=== PATIENT | male | born 1990 | race Caucasian/White ===

== ENCOUNTER 2017-01-08 18:56 | Emergency (ER) | payer MEDICAID ==
[~2017-01-08] VITALS: Ht 182.9 cm; Wt 108.9 kg
[~2017-01-08 18:56] MED LIST: ALBMDI IH; FLUT1DIS3; LEVA1.25; LITH300C2 PO; VENL75CA PO
--- NOTE | 2017-01-08 18:57 | NUR ---
Patient to ER bed 2 to gown for evaluation. Side rails up. Report given to Reji LOMAX.
[2017-01-08 19:00] VITALS: BP 159/81; PULSE 92; RESP 27; TEMP 97.9; O2SAT 99
[2017-01-08] MEDS ORDERED: ALBUTEROL SULFATE 0.083% 2.5 MG/3 ML VIAL.NEB INH ONE ×2 (19:00→19:09)
[2017-01-08] MEDS ORDERED: IPRATROPIUM BROM 0.5 MG/2.5 ML VIAL.NEB (ATROVENT) INH ONE (19:00)
[2017-01-08] MEDS ORDERED: methylPREDNISolone SOD SUCC/PF 62.5 MG/ML VIAL IVP ONE (19:00)
--- NOTE | 2017-01-08 19:01 | NUR ---
Patient alert and oriented x 4. Came in the ER with SOB, nares flaring, heavy breathing. Denies n/v/d. Afebrile. RT was called. Denies any other medical problems.
--- NOTE | 2017-01-08 19:02 | NUR ---
ER Dr. Napoles at bedside examining patient.
--- NOTE | 2017-01-08 19:05 | NUR ---
# 20 gauge angiocath placed to right hand. Use of asceptic technique. Opsite placed over site. Blood return noted. Blood for lab drawn from site. Flushed with 10 cc of normal saline. No evidence of infiltration noted. Patient tolerated well.
[2017-01-08] MEDS ORDERED: MAGNESIUM SULFATE 1 GM in NS 100 ML IV ONE (19:15)
[2017-01-08] MEDS ORDERED: MAGNESIUM SULFATE 1 GM/2 ML VIAL ONE (19:21)
[2017-01-08 20:03] VITALS: BP 145/69; PULSE 87; RESP 22; TEMP 97.6; O2SAT 98
--- NOTE | 2017-01-08 20:03 | NUR ---
Patient given written and verbal discharge instructions and verbalizes understanding. ER MD discussed with patient the results and treatment provided. Patient in stable condition. No acute distress or SOB upon discharge. ID arm band removed. IV catheter removed intact and dressing applied, no active bleeding. Rx of Azithromycin and Prednisone given. Pain Scale 0/10. Opportunity for questions provided and answered.
== END 2017-01-08 20:03 | disposition home or self-care (01) ==
LOC: SED 18:56
DX: J45.901 Unspecified asthma with (acute) exacerbation (principal); F32.9 Major depressive disorder, single episode, unspecified; R05 Cough
CPT/HCPCS: 94640; 96365; 96375; 99291; J2930; J3475

== ENCOUNTER 2017-08-15 11:06 | Emergency (ER) | payer MEDICAID ==
[~2017-08-15] VITALS: Ht 182.9 cm; Wt 104.3 kg
[~2017-08-15 11:06] MED LIST changes: -LEVA1.25; -LITH300C2 PO; -VENL75CA PO
[2017-08-15 11:11] VITALS: BP_SYST 133
[2017-08-15] MEDS ORDERED: KETOROLAC TROMETHAMINE 30 MG VIAL IM ONE (12:30)
[2017-08-15 13:42] VITALS: BP_SYST 130
== END 2017-08-15 13:40 | disposition home or self-care (01) ==
LOC: SED 11:06
DX: J45.909 Unspecified asthma, uncomplicated (principal); S63.502A Unspecified sprain of left wrist, initial encounter; M25.512 Pain in left shoulder; S83.91XA Sprain of unspecified site of right knee, initial encounter; W03.XXXA Other fall on same level due to collision with another person, initial encounter; Y93.89 Activity, other specified; Y92.89 Other specified places as the place of occurrence of the external cause; Y99.8 Other external cause status
CPT/HCPCS: 29125; 73020; 73080; 73100; 73130; 73564; 96372; 99284; J1885

== ENCOUNTER 2017-09-14 21:02 | Emergency (ER) | payer MEDICAID ==
[~2017-09-14] VITALS: Ht 182.9 cm; Wt 100.7 kg
[2017-09-14 21:04] VITALS: BP_SYST 132
[2017-09-14] MEDS ORDERED: PREDNISONE 20 MG TABLET PO ONE (22:00)
[2017-09-14] MEDS ORDERED: IPRATROPIUM BROM 0.5 MG/2.5 ML VIAL.NEB (ATROVENT) IH ONE (22:00)
[2017-09-14] MEDS ORDERED: LevALBUTEROL HCL 1.25 MG/0.5 ML *CONC.* VIAL.NEB (XOPENEX CONC.) INH ONE ×3 (22:00→23:30)
[2017-09-14] MEDS ORDERED: PREDNISONE 20 MG TABLET ONE (22:32)
[2017-09-14 23:58] VITALS: BP_SYST 128
== END 2017-09-14 23:58 | disposition home or self-care (01) ==
LOC: SED 21:02
DX: J45.901 Unspecified asthma with (acute) exacerbation (principal); F32.9 Major depressive disorder, single episode, unspecified
CPT/HCPCS: 93005; 94640; 99284; J7512

== ENCOUNTER 2020-06-13 18:56 | Emergency (ER) | payer MEDICAID ==
[~2020-06-13] VITALS: Ht 182.9 cm; Wt 108.9 kg
[~2020-06-13 18:56] MED LIST changes: -FLUT1DIS3; +FLUT1DIS3 IH
[2020-06-13 19:10] VITALS: BP_SYST 143
[2020-06-13] MEDS ORDERED: KETOROLAC TROMETHAMINE 30 MG VIAL IM ONE (19:45)
[2020-06-13] MEDS ORDERED: HYDROcodone/ACETAMIN 5-325 MG TAB (NORCO/ VICODIN) PO ONE ×2 (20:30→21:15)
[2020-06-13 21:25] VITALS: BP_SYST 133
[2020-06-14] MEDS ORDERED: COLCHICINE 0.6 MG TABLET PO SCH (09:00)
== END 2020-06-13 21:25 | disposition home or self-care (01) ==
LOC: SED 18:56
DX: M10.9 Gout, unspecified (principal); J45.909 Unspecified asthma, uncomplicated; F12.90 Cannabis use, unspecified, uncomplicated
CPT/HCPCS: 73630; 96372; 99284; J1885

== ENCOUNTER 2020-08-17 19:55 | Emergency (ER) | payer MEDICAID ==
[~2020-08-17] VITALS: Ht 182.9 cm; Wt 108.9 kg
[2020-08-17 19:55] VITALS: BP_SYST 144
--- NOTE | 2020-08-17 19:56 | NUR ---
Patient to ER bed 2 to gown for evaluation. Side rails up.
--- NOTE | 2020-08-17 20:00 | NUR ---
pt a&o x4 from home c/o of shortness of breath starting 2 hours ago while sitting on his couch watching television. pt used inhaler twice at home without improvement in his breathing. pt reports chest tightness 3/10, dull nonradiating. pt denies fever, chills, nausea, vomiting.
--- NOTE | 2020-08-17 20:02 | NUR ---
ER Dr. Cristina at bedside examining patient.
--- NOTE | 2020-08-17 20:10 | NUR ---
respiratory therapist at bedside for breathing treatment.
[2020-08-17] MEDS ORDERED: methylPREDNISolone SOD SUCC/PF 62.5 MG/ML VIAL IM ONE (20:15)
[2020-08-17] MEDS ORDERED: IPRATROPIUM/ALBUTEROL SULFATE 3 ML AMPUL.NEB (DUONEB) INH ONE (20:15)
--- NOTE | 2020-08-17 20:15 | NUR ---
radiology at bedside for chest xray.
--- NOTE | 2020-08-17 20:33 | NUR ---
patient reports breathing is better after received breathing tx, chest tightness has resolved to a 1 out of 10. MD aware.
[2020-08-17 21:16] VITALS: BP_SYST 126
--- NOTE | 2020-08-17 21:16 | NUR ---
Patient given written and verbal discharge instructions and verbalizes understanding. ER MD discussed with patient the results and treatment provided. Patient in stable condition. ID arm band removed. Rx of colchicine and prednisone given. Patient educated on pain management and to follow up with PMD. Pain Scale 2/10. Opportunity for questions provided and answered. Medication side effect fact sheet provided.
== END 2020-08-17 21:16 | disposition home or self-care (01) ==
LOC: SED 19:55
DX: J45.901 Unspecified asthma with (acute) exacerbation (principal); M10.9 Gout, unspecified
CPT/HCPCS: 71045; 94640; 96372; 99283; J2930

== ENCOUNTER 2020-09-15 19:54 | Emergency (ER) | payer MEDICAID, SELFPAY ==
[~2020-09-15] VITALS: Ht 182.9 cm; Wt 108.9 kg
[2020-09-15 20:15] VITALS: BP_SYST 128
[2020-09-15 20:22] VITALS: BP_SYST 128
--- NOTE | 2020-09-15 22:02 | NUR ---
Per dispatcher clerk, pt LWBS.
== END 2020-09-15 22:02 | disposition left against medical advice (07) ==
LOC: SED 19:54
DX: R06.02 Shortness of breath (principal); Z53.21 Procedure and treatment not carried out due to patient leaving prior to being seen by health care provider
CPT/HCPCS: 36415